=== PATIENT | male | born 1980 | race Caucasian/White ===

== ENCOUNTER 2019-02-12 13:34 | Emergency (ER) | payer OTHER, SELFPAY ==
[~2019-02-12] VITALS: Ht 154.9 cm; Wt 61.0 kg
[2019-02-12 13:47] VITALS: BP 142/86
[2019-02-12] MEDS ORDERED: ACETAMINOPHEN 325MG TABLET PO ONE (14:15)
== END 2019-02-12 15:34 | disposition left against medical advice (07) ==
LOC: ER 13:34
DX: S01.01XA Laceration without foreign body of scalp, initial encounter (principal); S06.0X9A Concussion with loss of consciousness of unspecified duration, initial encounter; V03.10XA Pedestrian on foot injured in collision with car, pick-up truck or van in traffic accident, initial encounter; Y93.89 Activity, other specified; Y92.488 Other paved roadways as the place of occurrence of the external cause
CPT/HCPCS: 70450; 99284; A4217